=== PATIENT | female | born 1955 | race Caucasian/White ===

== ENCOUNTER → 2017-07-05 | Outpatient (CLI) | payer BC, OTHER ==
--- NOTE | 2017-07-06 07:01 | BD ---
EXAMINATION TYPE: MG DEXA axial skeleton. DATE OF EXAM: 07/05/2017 COMPARISON: 02.18.2015 DEXA bone scan. CLINICAL HISTORY: N95.1 POST MENOPAUSAL SYMPTOMS Height: 61.3 Weight: 106 FRAX RISK QUESTIONS: Alcohol (3 or more units per day): NO Family History (Parent hip fracture): NO Glucocorticoids (More than 3mos): NO (Ex: prednisone, prednisolone, methylprednisolone, dexamethasone, and hydrocortisone). History of Fracture in Adulthood: NO Secondary Osteoporosis: NO 1. Type 1 Diabetes: NO 2. Hyperthyroidism: NO 3. Menopause before 45: NO 4. Malnutrition: NO 5. Chronic liver disease: NO Rheumatoid Arthritis: NO Current Tobacco Use: NO RISK FACTORS HISTORY OF: Family History of Osteoporosis: NONE KNOWN Active: YES Diet low in dairy products/other sources of calcium: NO Postmenopausal woman: YES, AT 50 YRS OLD Hyperparathyroidism: NO Adrenal Insufficiency: NO MEDICATIONS: Additional Medications: VIT D AND CALCIUM Additional History: NONE TO NOTE EXAM MEASUREMENTS: Bone mineral densitometry was performed using the Tradiio System. Bone mineral density as measured about the Lumbar spine is: ----- L1-L4(G/cm2): 1.023 T Score Values are as follows: ----- L1: -1.8 ----- L2: -1.8 ----- L3: -1.2 ----- L4: -0.7 ----- L1-L4: -1.3 Bone mineral density has: Decreased -2.6% since study of: 02.18.2015 Bone mineral density about the R hip (g/cm2): 0.841 Bone mineral density about the L hip (g/cm2): 0.807 T Score values are as follows: -----R Neck: -1.9 -----L Neck: -2.1 -----R Total: -1.3 -----L Total: -1.6 Bone mineral density has: Decreased -1.6% since study of: 02.18.2015 FRAX%'S: THERE IS A 9.4% CHANCE OF A MAJOR OSTEOPOROTIC FX AND A 1.5% FOR A HIP FX....PROBABILITY OF FX IN 10 YRS TIME IMPRESSION: Osteopenia (T Score between -2.5 and -1 as noted by T score values persists in the low back and both hips. Bone density slightly decreased or diminished from prior. There is slightly increased risk of fracture and the patient may be considered for treatment. Re-Screen 2-5 years NOTE: T-SCORE=SD OF THE YOUNG ADULT MEAN.
--- NOTE | 2017-07-06 08:30 | MM ---
Reason for exam: screening (asymptomatic). Last mammogram was performed 1 year and 1 month ago. History: Patient is postmenopausal. Family history of breast cancer in mother at age 78. Physical Findings: Nurse did not find any significant physical abnormalities on exam. MG 3D Screening Mammo W/Cad Bilateral CC and MLO view(s) were taken. Prior study comparison: June 09, 2016, right breast MG 3d work up w/cad RT. June 04, 2016, bilateral MG screening mammo w CAD. The breast tissue is extremely dense which could obscure a lesion on mammography. Finding: There are typically benign dystrophic and round calcifications in both breasts. There is no discrete abnormality. ASSESSMENT: Benign, BI-RAD 2 RECOMMENDATION: Routine screening mammogram of both breasts in 1 year.
== END | disposition home or self-care (01) ==
LOC: RADMAMWWP 14:30
PROVIDERS: ATTEND Family Medicine
DX: Z12.31 Encounter for screening mammogram for malignant neoplasm of breast (principal); M85.80 Other specified disorders of bone density and structure, unspecified site; N95.1 Menopausal and female climacteric states
CPT/HCPCS: 77080; 77063; G0202

== ENCOUNTER → 2018-02-17 | Outpatient (CLI) | payer BC, OTHER ==
--- NOTE | 2018-02-17 09:58 | MM ---
Reason for exam: clinical finding. Last mammogram was performed 7 months ago. History: Patient is postmenopausal. Family history of breast cancer in mother at age 78. Physical Findings: Nurse Summary: 3cm nodule in the right breast at 10 o'clock (nurse nai). MG 3D Diag Mammo W/Cad RT CC and MLO view(s) were taken of the right breast. Prior study comparison: July 05, 2017, bilateral MG 3d screening mammo w/cad. June 09, 2016, right breast MG 3d work up w/cad RT. The breast tissue is heterogeneously dense. This may lower the sensitivity of mammography. There is no discrete abnormality including area of concern. These results were verbally communicated with the patient and result sheet given to the patient on 02/17/18. ASSESSMENT: Incomplete: need additional imaging evaluation, BI-RAD 0 RECOMMENDATION: Ultrasound of the right breast.
--- NOTE | 2018-02-17 10:00 | USB ---
Reason for exam: additional evaluation requested from abnormal screening. History: Patient is postmenopausal. Family history of breast cancer in mother at age 78. US Breast Limited RT Right breast ultrasound demonstrates a 0.6 x 0.6 x 0.2cm oval, hypoechoic lesion at 10 o'clock and a 0.3 x 0.3 x 0.4cm round, solid lesion at 11 o'clock. These results were verbally communicated with the patient and result sheet given to the patient on 02/17/18. ASSESSMENT: Suspicious, BI-RAD 4 RECOMMENDATION: Ultrasound core biopsy of the right breast. Manage patient on a clinical basis. Called Dr. Pedraza's office with mammographic findings and has scheduled an appointment for the patient for 03/09/18 at 10:[address] Nguyen. Biopsy scheduled for 02/23/18. PRELIMINARY REPORT CALLED AND FAXED TO DR. NGUYEN ON 02/17/18.
== END | disposition home or self-care (01) ==
LOC: RADMAMWWP 06:54
PROVIDERS: ATTEND Family Medicine
DX: N63.11 Unspecified lump in the right breast, upper outer quadrant (principal); R92.8 Other abnormal and inconclusive findings on diagnostic imaging of breast
CPT/HCPCS: 77061; 77065

== ENCOUNTER → 2018-02-23 | Day surgery (SDC) | payer BC, OTHER ==
[2018-02-23 11:36] VITALS: RESP 16; BMI 18.3
[2018-02-23 13:36] VITALS: BP 138/77; PULSE 70; TEMP 98.4
--- NOTE | 2018-02-23 13:52 | USB ---
EXAMINATION TYPE: US biopsy breast VAD RT, MG diagnostic mammo RT wo CAD DATE OF EXAM: 02/23/2018 CLINICAL HISTORY: R92.8 Previous Abnormal Mammogram. Palpable abnormality. Abnormal ultrasound. TECHNIQUE: Ultrasound guided core biopsy of right breast with clip placement and follow-up two-view mammogram. COMPARISON: Prior right breast ultrasound and mammogram February 17, 2018. FINDINGS: The procedure of ultrasound guided core biopsy was explained to the patient. Benefits, alternatives, and risks were discussed. An informed consent was then obtained. The patient was placed in supine positioning for imaging and for the procedure. Preprocedure ultrasound redemonstrates heterogeneous hyperechoic area 10:00 position at level of palpable abnormality with oval 6 mm well- defined hypoechoic area along the superficial periphery. The overlying skin was prepped and draped in usual sterile fashion. Lidocaine buffered with bicarbonate was used as anesthetic into the skin and subcutaneous tissue in the right breast. Under ultrasound guidance, a vacuum assisted biopsy gun device was used to obtain 5 core samples. Following this, a biopsy clip was left in lesion. The patient tolerated the procedure well without any immediate complication. The patient was kept in the radiology department for short stay after the procedure and then discharged home in stable condition. Postprocedure mammogram confirms successful deployment of clip which correlates with BB from palpable on original mammogram. IMPRESSION: Successful, uncomplicated ultrasound guided core biopsy of area of concern in the right breast, full pathology results to follow. Low index of suspicion, favor benign tissue or lobule. Pathology Results: Benign BREAST, RIGHT, CORE BIOPSY: FIBROCYSTIC CHANGES INCLUDING DENSE STROMAL FIBROSIS WITH FIBROADENOMATOID HYPERPLASIA AND RARE MICROCALCIFICATIONS. Recommendation Follow up ultrasound of the right breast in 6 months. IMAN
== END ==
LOC: RADUSWWP 11:14
PROVIDERS: ATTEND Surgery
DX: N60.31 Fibrosclerosis of right breast (principal); N62 Hypertrophy of breast; R92.0 Mammographic microcalcification found on diagnostic imaging of breast; R92.8 Other abnormal and inconclusive findings on diagnostic imaging of breast; Z88.1 Allergy status to other antibiotic agents; Z88.0 Allergy status to penicillin; Z88.2 Allergy status to sulfonamides; Z88.8 Allergy status to other drugs, medicaments and biological substances
CPT/HCPCS: 88305; 77065; 19083; A4648; J2001

== ENCOUNTER → 2018-04-28 | Outpatient (CLI) | payer BC, OTHER ==
--- NOTE | 2018-04-28 09:12 | US ---
EXAMINATION TYPE: US abdomen comp/pelvis limited DATE OF EXAM: 04/28/2018 COMPARISON: NONE CLINICAL HISTORY: N39.0 Urinary Tract Infection,R10.32 Abd Pain LLQ,. Frequent UTI's. LUQ pain. No surgeries. EXAM MEASUREMENTS: Liver Length: 17.8 cm Gallbladder Wall: 0.1 cm CBD: 0.2 cm CHD: 0.2 Spleen: 8.1 cm Right Kidney: 10.2 x 4.7 x 3.6 cm Left Kidney: 7.6 x 3.1 x 3.0 cm Pancreas: wnl Liver: Upper limits of normal in size Gallbladder: Folds seen in neck region CBD: wnl CHD: wnl Spleen: wnl Right Kidney: Appears echogenic. Medial anechoic lesion = 1.8 x 1.3 that may represent portions of a prominent renal pelvis or a parapelvic cyst. Cortex appears prominent with renal sinus not well se en. Possible lower pole lesion = 2.4 x 1.9 cm. Left Kidney: Not well visualized due to overlying bowel gas. Appears small in size compared to cont ralateral kidney Upper IVC: wnl Abd Aorta: No AAA identified Bladder: wnl, moderately distended Bilateral Jets not Seen IMPRESSION: 1. Solid right lower pole renal lesion measuring 2.4 cm for which full characterization with three-ph ase dynamic enhanced CT is recommended. 2. Asymmetric size of the left kidney, possibly congenital. Cortical medullary differentiation is beau ntained. No other sonographic evidence of medical renal disease or atrophy.
== END | disposition home or self-care (01) ==
LOC: RADUSWWP 08:02
PROVIDERS: ATTEND Family Medicine
DX: N28.89 Other specified disorders of kidney and ureter (principal); N39.0 Urinary tract infection, site not specified; R10.12 Left upper quadrant pain; R10.32 Left lower quadrant pain
CPT/HCPCS: 76700; 76857

== ENCOUNTER → 2018-05-09 | Outpatient (CLI) | payer BC, OTHER ==
--- NOTE | 2018-05-09 09:27 | CT ---
EXAMINATION TYPE: CT abdomen w con DATE OF EXAM: 05/09/2018 COMPARISON: Ultrasound Kidneys 04/28/18 HISTORY: Abn US, Lt flank pain, frequent UTI CT DLP: 232.4 mGycm CONTRAST: CT scan of the abdomen is performed with Oral Contrast and with IV Contrast, patient injected with 10 0 mL of Isovue 300. FINDINGS: LUNG BASES-: No visible nodule. No infiltrate. LIVER/GB: No calcified gallstones. No space occupying hepatic lesion. Biliary tree is of normal ca liber. PANCREAS: No inflammation. No distinct mass. SPLEEN: No splenic enlargement. No lesion seen. ADRENALS: No nodule. No thickening. KIDNEYS/BLADDER: The left kidney is atrophic. There is a striated appearance to the left kidney which may reflect underlying pyelonephritis. The right kidney demonstrates compensatory hypertrophy. No ev idence for solid mass. There is a parenchymal scarring lower pole right kidney as well as upper pole right kidney. No definite hydronephrosis or nephrolithiasis appreciated. BOWEL: Normal appendix. Normal bowel caliber. No inflammation. LYMPH NODES: No greater than 1cm abdominal or pelvic lymph nodes are appreciated. AORTA: No significant abnormality. OSSEOUS STRUCTURES: No significant abnormality is seen. OTHER: No significant additional abnormality is seen. IMPRESSION: 1. Atrophic left kidney with striated enhancement may reflect underlying pyelonephritis. Correlate cl inically. 2. No solid renal mass identified at this time.
== END | disposition home or self-care (01) ==
LOC: RADCTMAIN 07:58
PROVIDERS: ATTEND Family Medicine
DX: N26.1 Atrophy of kidney (terminal) (principal)
CPT/HCPCS: 74160; Q9967

== ENCOUNTER → 2018-07-24 | Outpatient (CLI) | payer BC, OTHER ==
--- NOTE | 2018-07-24 11:18 | MM ---
Reason for exam: follow-up at short interval from prior study. Last mammogram was performed 5 months ago. History: Patient is postmenopausal. Family history of breast cancer in mother at age 78. Benign US biopsy breast VAD RT of the right breast, February 23, 2018. Physical Findings: Nurse Summary: 0.5 x 1cm nodule in the right breast at 10 o'clock and a 0.5 x 0.5cm nodule in the left breast at 12 o'clock, 0.5 x 1cm nodule in the left breast at 3 o'clock (nurse ts). MG 3D Diag Mammo W/Cad [facility] Bilateral CC and MLO view(s) were taken. Prior study comparison: February 23, 2018, right breast MG diagnostic mammo RT wo CAD. February 17, 2018, right breast MG 3d diag mammo w/cad RT. The breast tissue is extremely dense which could obscure a lesion on mammography. No suspicious abnormality. Right breast biopsy marker. These results were verbally communicated with the patient and result sheet given to the patient on 07/24/18. ASSESSMENT: Incomplete: need additional imaging evaluation, BI-RAD 0 RECOMMENDATION: Ultrasound of the left breast. (left palpable abnormalities upper outer quadrant)
--- NOTE | 2018-07-24 11:20 | USB ---
Reason for exam: additional evaluation requested from abnormal screening. History: Patient is postmenopausal. Family history of breast cancer in mother at age 78. Benign US biopsy breast VAD RT of the right breast, February 23, 2018. US Breast Limited BILAT Right complete breast ultrasound includes all four quadrants, the retroareolar region and axilla. Finding demonstrates a 0.5 x 0.5 x 0.3cm oval, cystic, benign lesion at 9 o'clock, a 1.2 x 0.7 x 0.4cm oval, node at 10 o'clock BB and tissue marker at 11 o'clock. Left limited breast ultrasound including focal area of concern, retroareolar and axilla demonstrates duct ectasia at posterior nipple. These results were verbally communicated with the patient and result sheet given to the patient on 07/24/18. ASSESSMENT: Benign, BI-RAD 2 RECOMMENDATION: Routine screening mammogram of both breasts in 1 year.
== END | disposition home or self-care (01) ==
LOC: RADMAMWWP 09:18
PROVIDERS: ATTEND Surgery
DX: R92.8 Other abnormal and inconclusive findings on diagnostic imaging of breast (principal)
CPT/HCPCS: 77062; 77066

== ENCOUNTER → 2019-07-18 | Outpatient (CLI) | payer BC, OTHER ==
--- NOTE | 2019-07-18 09:11 | MM ---
Reason for exam: additional evaluation requested from prior study. Last mammogram was performed 1 year ago. History: Patient is postmenopausal. Family history of breast cancer in mother at age 78. Benign US biopsy breast VAD RT of the right breast, February 23, 2018. Taking estrogen for 2 months. Physical Findings: Nurse Summary: 0.5 x 1cm nodule in the right breast at 10 o'clock (nurse ts). MG 3D Diag Mammo W/Cad GL[facility] Bilateral CC and MLO view(s) were taken. Prior study comparison: July 24, 2018, bilateral MG 3d diag mammo w/cad [facility]. February 23, 2018, right breast MG diagnostic mammo RT wo CAD. The breast tissue is heterogeneously dense. This may lower the sensitivity of mammography. Stable benign calcifications. There is chronic nodularity bilaterally. These results were verbally communicated with the patient and result sheet given to the patient on 07/18/19. ASSESSMENT: Incomplete: need additional imaging evaluation, BI-RAD 0 RECOMMENDATION: Ultrasound of the right breast. Manage patient on a clinical basis.
--- NOTE | 2019-07-18 09:14 | USB ---
Reason for exam: additional evaluation requested from prior study. History: Patient is postmenopausal. Family history of breast cancer in mother at age 78. Benign US biopsy breast VAD RT of the right breast, February 23, 2018. Taking estrogen for 2 months. US Breast RT Right complete breast ultrasound includes all four quadrants, the retroareolar region and axilla. Finding demonstrates a 0.3 x 0.3 x 0.2cm cystic lesion at 5 o'clock. These results were verbally communicated with the patient and result sheet given to the patient on 07/18/19. ASSESSMENT: Benign, BI-RAD 2 RECOMMENDATION: Routine screening mammogram of both breasts in 1 year. Manage patient on a clinical basis.
--- NOTE | 2019-07-18 12:34 | BD ---
EXAMINATION TYPE: Axial Bone Density DATE OF EXAM: 07/18/2019 COMPARISON: 2017 CLINICAL HISTORY: disorder of bone Height: 5'2 Weight: 104 FRAX RISK QUESTIONS: Secondary Osteoporosis: RISK FACTORS HISTORY OF: Postmenopausal woman: y MEDICATIONS: Additional Medications: eye drops Additional History: EXAM MEASUREMENTS: Bone mineral densitometry was performed using the [employer] System. Bone mineral density as measured about the Lumbar spine is: ----- L1-L4(G/cm2): 1.003 T Score Values are as follows: ----- L2: -1.8 ----- L3: -1.3 ----- L4: -1.2 ----- L1-L4: -1.5 Bone mineral density has: Decreased -2.1% since study of: 07/05/2017 Bone mineral density about the R hip (g/cm2): 0.715 Bone mineral density about the L hip (g/cm2): 0.708 T Score values are as follows: -----R Neck: -2.3 -----L Neck: -2.4 -----R Total: -1.5 -----L Total: -1.8 Bone mineral density has: Decreased -2.7% since study of: 07/05/2017 IMPRESSION: Osteopenia NOTE: T-SCORE=SD OF THE YOUNG ADULT MEAN.
== END | disposition home or self-care (01) ==
LOC: RADUSWWP 06:55
PROVIDERS: ATTEND Family Medicine
DX: N60.01 Solitary cyst of right breast (principal); R92.8 Other abnormal and inconclusive findings on diagnostic imaging of breast; M85.88 Other specified disorders of bone density and structure, other site
CPT/HCPCS: 77062; 77066; 77080

== ENCOUNTER → 2020-07-15 | Outpatient (CLI) | payer MEDICARE, OTHER ==
--- NOTE | 2020-07-15 09:09 | MM ---
Reason for exam: additional evaluation requested from prior study. Last mammogram was performed 1 year ago. History: Patient is postmenopausal. Family history of breast cancer in mother at age 78. Benign US biopsy breast VAD RT of the right breast, February 23, 2018. Taking estrogen for 2 months. Physical Findings: Nurse did not find any significant physical abnormalities on exam. MG 3D Diag Mammo W/Cad GLORIA Bilateral CC and MLO view(s) were taken. Prior study comparison: July 18, 2019, bilateral MG 3d diag mammo w/cad [facility]. July 24, 2018, bilateral MG 3d diag mammo w/cad [facility]. The breast tissue is extremely dense which could obscure a lesion on mammography. Previous mammotome biopsy in the right breast. No significant new findings when compared with previous films. These results were verbally communicated with the patient and result sheet given to the patient on 07/15/20. ASSESSMENT: Benign, BI-RAD 2 RECOMMENDATION: Routine screening mammogram of both breasts in 1 year.
== END | disposition home or self-care (01) ==
LOC: RADMAMWWP 08:12
PROVIDERS: ATTEND Nurse Practitioner Family
DX: R92.8 Other abnormal and inconclusive findings on diagnostic imaging of breast (principal)
CPT/HCPCS: 77066; G0279; 77062

== ENCOUNTER → 2021-07-17 | Outpatient (CLI) | payer MEDICARE, OTHER ==
--- NOTE | 2021-07-20 11:56 | MM ---
Reason for exam: screening (asymptomatic). Last mammogram was performed 1 year ago. History: Patient is postmenopausal. Family history of breast cancer in mother at age 78. Benign US biopsy breast VAD RT of the right breast, February 23, 2018. Taking estrogen for 2 months. Physical Findings: A clinical breast exam by your physician is recommended on an annual basis and results should be correlated with mammographic findings. MG 3D Screening Mammo W/Cad Bilateral CC and MLO view(s) were taken. Prior study comparison: July 15, 2020, bilateral MG 3d diag mammo w/cad [facility]. July 18, 2019, bilateral MG 3d diag mammo w/cad [facility]. The breast tissue is extremely dense which could obscure a lesion on mammography. There are benign appearing round calcifications bilaterally. Previous mammotome biopsy in the right breast. There is no discrete abnormality. ASSESSMENT: Benign, BI-RAD 2 RECOMMENDATION: Routine screening mammogram of both breasts in 1 year. Some consider bilateral ultrasound surveillance in patient with extremely dense fibroglandular tissue.
== END | disposition home or self-care (01) ==
LOC: RADMAMWWP 06:58
PROVIDERS: ATTEND Family Medicine
DX: Z12.31 Encounter for screening mammogram for malignant neoplasm of breast (principal); Z78.0 Asymptomatic menopausal state; Z80.3 Family history of malignant neoplasm of breast
CPT/HCPCS: 77063; 77067

== ENCOUNTER → 2022-07-19 | Outpatient (CLI) | payer MEDICARE, OTHER ==
--- NOTE | 2022-07-19 08:21 | MM ---
Reason for Exam: Screening (asymptomatic). Last screening mammogram was performed 12 month(s) ago. Patient History: Menarche at age 13. First Full-Term at age 18. Postmenopausal. Currently using Estrogen, for 2 months. 02/23/2018, Benign Core Biopsy on the right side. Mother had breast cancer, age 78. Risk Values: Alyssa 5 year model risk: 3.7%. NCI Lifetime model risk: 12.3%. Prior Study Comparison: 07/18/2019 Bilateral Diagnostic Mammogram, [facility]. 07/15/2020 Bilateral Diagnostic Mammogram, [facility]. 07/17/2021 Bilateral Screening Mammogram, [facility]. Tissue Density: The breast tissue is extremely dense which could obscure a lesion on mammography. Findings: Analyzed By CAD. Mammotome biopsy clip right breast is redemonstrated. There are some scattered benign-appearing round calcifications throughout the bilateral breasts again seen. There is no suspicious new group of microcalcifications or new distortion in either breast. Overall Assessment: Benign, BI-RAD 2 Management: Screening Mammogram of both breasts in 1 year. Some advise bilateral breast ultrasound surveillance in patients with background extreme dense tissue. A clinical breast exam by your physician is recommended on an annual basis and results should be correlated with mammographic findings. Electronically signed and approved by: Papi Hodges M.D.
== END | disposition home or self-care (01) ==
LOC: RADMAMWWP 07:16
PROVIDERS: ATTEND Family Medicine
DX: Z12.31 Encounter for screening mammogram for malignant neoplasm of breast (principal); Z78.0 Asymptomatic menopausal state; Z80.3 Family history of malignant neoplasm of breast
CPT/HCPCS: 77063; 77067

== ENCOUNTER → 2023-07-21 | Outpatient (CLI) | payer MEDICARE, OTHER ==
--- NOTE | 2023-07-22 20:59 | MM ---
Reason for Exam: Screening (asymptomatic). Last screening mammogram was performed 12 month(s) ago. Patient History: Menarche at age 13. First Full-Term at age 18. Postmenopausal. Currently using Estrogen, for 2 months. 02/23/2018, Benign Core Biopsy on the right side. Mother had breast cancer, age 78. Risk Values: Alyssa 5 year model risk: 3.7%. NCI Lifetime model risk: 11.8%. Prior Study Comparison: 07/15/2020 Bilateral Diagnostic Mammogram, [facility]. 07/17/2021 Bilateral Screening Mammogram, [facility]. 07/19/2022 Bilateral MG 3D screening mammo w/cad, [facility]. Tissue Density: The breast tissue is extremely dense which could obscure a lesion on mammography. Findings: Analyzed By CAD. Benign bilateral oil cyst calcifications. Microclip right breast from prior biopsy. There is no suspicious group of microcalcifications or new suspicious mass in either breast. Overall Assessment: Benign, BI-RAD 2 Management: Screening Mammogram of both breasts in 1 year. See note below in regards to patient's increased 5 year Alyssa score. In addition, given the patient's dense breast tissue, consideration can be given to supplementary screening with breast ultrasound. Patient should continue monthly self-breast exams. A clinical breast exam by your physician is recommended on an annual basis. This exam should not preclude additional follow-up of suspicious palpable abnormalities. Note on Alyssa scores and lifetime risk: 1. A Alyssa score greater than 3% is considered moderate risk. If this is the case, consider specialist referral to assess eligibility for a risk reducing agent. 2. If overall lifetime risk for the development of breast cancer is 20% or higher, the patient may qualify for future screening with alternating mammogram and breast MRI. Electronically signed and approved by: Stephie Curry M.D. Radiologist
== END | disposition home or self-care (01) ==
LOC: RADMAMWWP 13:04
PROVIDERS: ATTEND Student in an Organized Health Care Education/Training Program
DX: Z12.31 Encounter for screening mammogram for malignant neoplasm of breast (principal); Z78.0 Asymptomatic menopausal state; Z80.3 Family history of malignant neoplasm of breast
CPT/HCPCS: 77063; 77067

== ENCOUNTER → 2025-02-22 | Outpatient (CLI) | payer MEDICARE, OTHER ==
--- NOTE | 2025-02-22 08:48 | MM ---
Reason for Exam: Screening (asymptomatic). Last mammogram was performed 1 year(s) and 7 month(s) ago. Patient History: Menarche at age 13. First Full-Term at age 18. Postmenopausal. Currently using Estrogen, for 2 months. 02/23/2018, Benign Core Biopsy on the right side. Mother had breast cancer, age 78. Risk Values: Alyssa 5 year model risk: 3.8%. NCI Lifetime model risk: 11.3%. Prior Study Comparison: 07/17/2021 Bilateral Screening Mammogram, [facility]. 07/19/2022 Bilateral MG 3D screening mammo w/cad, [facility]. 07/21/2023 Bilateral MG 3D screening mammo w/cad, [facility]. Tissue Density: The breasts are extremely dense, which lowers the sensitivity of mammography. Findings: Analyzed By CAD. Right breast biopsy clip. Right breast: There is no suspicious group of microcalcifications or new suspicious mass. Benign-appearing calcifications right breast. Left breast: There is no suspicious group of microcalcifications or new suspicious mass. Benign-appearing calcifications left breast. Overall Assessment: Benign, BI-RAD 2 Management: Screening Mammogram of both breasts in [address] [facility] will attempt to contact patient to return for supplemental views and ultrasound if indicated. Patient should continue monthly self-breast exams. A clinical breast exam by your physician is recommended on an annual basis. This exam should not preclude additional follow-up of suspicious palpable abnormalities. Note on Alyssa scores and lifetime risk: 1. A Alyssa score greater than 3% is considered moderate risk. If this is the case, consider specialist referral to assess eligibility for a risk reducing agent. 2. If overall lifetime risk for the development of breast cancer is 20% or higher, the patient may qualify for future screening with alternating mammogram and breast MRI. [facility], , 02/22/2025 8:44 AM. Electronically signed and approved by: Sandeep Dill DO
== END | disposition home or self-care (01) ==
LOC: RADMAMWWP 08:08
PROVIDERS: ATTEND Family Medicine
DX: Z12.31 Encounter for screening mammogram for malignant neoplasm of breast (principal); R92.343 Mammographic extreme density, bilateral breasts; Z78.0 Asymptomatic menopausal state; Z80.3 Family history of malignant neoplasm of breast
CPT/HCPCS: 77063; 77067